=== PATIENT | female | born 1935 | race Two or more races ===

== ENCOUNTER 2018-02-12 05:30 | Day surgery (SDC) | payer OTHER ==
[~2018-02-12 05:30] MED LIST: ANASTROZOLE1 MG PO; BACTROBAN NASAL1 GM NS; FISH OIL 500 M1 EAC1 PO; GLUCOSAMINE-CH1 EAC8 PO; LEVAQUIN500 MG PO; VITAMIN B-121000 MCG PO; VITAMIN C500 M1 PO; ZOCOR40 MG PO; [UNRECOGNIZED DRUG - OTHER]
== END 2018-02-12 12:25 | disposition home or self-care (01) ==
LOC: CIR.AMB 05:30
DX: N81.3 Complete uterovaginal prolapse (principal)

== ENCOUNTER 2018-05-22 13:17 | Outpatient (CLI) | payer OTHER | END 2018-05-22 13:24 | disposition home or self-care (01) | LOC: RAD 13:17 | DX: M25.511 Pain in right shoulder (principal) ==

== ENCOUNTER 2018-05-29 14:52 | Outpatient (CLI) | payer OTHER | END 2018-05-29 15:22 | disposition home or self-care (01) | LOC: RAD 501 14:52 | DX: M17.0 Bilateral primary osteoarthritis of knee (principal); M79.651 Pain in right thigh; M79.604 Pain in right leg; M25.511 Pain in right shoulder ==

== ENCOUNTER → 2018-05-31 | Outpatient (CLI) | payer OTHER | END | disposition home or self-care (01) | LOC: NUCLEAR 13:50 | DX: M81.0 Age-related osteoporosis without current pathological fracture (principal) ==

== ENCOUNTER 2018-10-24 10:44 | Outpatient (CLI) | payer OTHER | END 2018-10-24 10:50 | disposition home or self-care (01) | LOC: RAD 501 10:44 | DX: M25.561 Pain in right knee (principal) ==

== ENCOUNTER 2018-12-10 07:32 | Outpatient (CLI) | payer OTHER ==
[2018-12-10] MEDS ORDERED: TRAZODONE HCL100 MG PO (11:59)
[2018-12-10] MEDS ORDERED: LEXAPRO20 MG PO (11:59)
== END 2018-12-10 14:33 ==
LOC: LAB 07:32
DX: I49.8 Other specified cardiac arrhythmias (principal); Z76.89 Persons encountering health services in other specified circumstances; D64.89 Other specified anemias; E88.89 Other specified metabolic disorders; D68.8 Other specified coagulation defects; N39.0 Urinary tract infection, site not specified; Z22.322 Carrier or suspected carrier of Methicillin resistant Staphylococcus aureus

== ENCOUNTER 2018-12-17 09:05 | Outpatient (CLI) | payer OTHER ==
[~2018-12-17 09:05] MED LIST changes: +LEXAPRO20 MG PO; +TRAZODONE HCL100 MG PO
== END 2018-12-17 09:12 | disposition home or self-care (01) ==
LOC: LAB 09:05
DX: N39.0 Urinary tract infection, site not specified (principal); B96.89 Other specified bacterial agents as the cause of diseases classified elsewhere

== ENCOUNTER 2018-12-30 05:55 | Inpatient (IN) | payer OTHER ==
[~2018-12-30] VITALS: Ht 160 cm; Wt 65.8 kg
[~2018-12-30 05:55] MED LIST changes: +AVILIFY PO; +LEXAPRO5 MG PO
[2018-12-31] MEDS ORDERED: ABILIFY20 MG PO (09:20)
[2019-01-02] MEDS ORDERED: XARELTO10 MG PO (09:05)
== END 2019-01-02 10:03 | disposition home or self-care (01) | DRG 470 ==
LOC: SURH 05:55 → O/R 05:55 → SURH 08:15 → CIR.AMB 11:42 → EDSTATUS 11:43 → SURH 11:43
PROVIDERS: ADMIT Orthopaedic Surgery
PROC: 0MNN0ZZ Release Right Knee Bursa and Ligament, Open Approach (ICD-10-PCS; 2018-12-30)
PROC: 0T9B70Z Drainage of Bladder with Drainage Device, Via Natural or Artificial Opening (ICD-10-PCS; 2018-12-30)
PROC: 0SRC0JZ Replacement of Right Knee Joint with Synthetic Substitute, Open Approach (ICD-10-PCS; principal; 2018-12-30 08:15)
PROC: 4A033R1 Measurement of Arterial Saturation, Peripheral, Percutaneous Approach (ICD-10-PCS; 2018-12-31)
DX: M17.11 Unilateral primary osteoarthritis, right knee (principal); M21.061 Valgus deformity, not elsewhere classified, right knee; G30.0 Alzheimer's disease with early onset; F02.80 Dementia in other diseases classified elsewhere, unspecified severity, without behavioral disturbance, psychotic disturbance, mood disturbance, and anxiety; Z88.2 Allergy status to sulfonamides; Z88.6 Allergy status to analgesic agent; Z88.0 Allergy status to penicillin

== ENCOUNTER 2020-06-10 14:33 | Outpatient (CLI) | payer OTHER ==
[~2020-06-10 14:33] MED LIST changes: +ABILIFY20 MG PO; +XARELTO10 MG PO
== END 2020-06-10 14:34 | disposition home or self-care (01) ==
LOC: NUCLEAR 14:33
PROVIDERS: ATTEND Orthopaedic Surgery
DX: M81.0 Age-related osteoporosis without current pathological fracture (principal)

== ENCOUNTER 2021-07-12 15:34 | Outpatient (CLI) | payer OTHER | END 2021-07-12 15:46 | disposition home or self-care (01) | LOC: RAD 15:34 | PROVIDERS: ATTEND Orthopaedic Surgery | DX: M25.561 Pain in right knee (principal); Z96.651 Presence of right artificial knee joint ==

== ENCOUNTER 2021-07-18 13:37 | Outpatient (CLI) | payer OTHER | END 2021-07-18 13:42 | disposition home or self-care (01) | LOC: NUCLEAR 13:37 | PROVIDERS: ATTEND Orthopaedic Surgery | DX: M81.0 Age-related osteoporosis without current pathological fracture (principal) ==

== ENCOUNTER 2021-09-07 11:46 | Outpatient (CLI) | payer OTHER | END 2021-09-07 11:51 | disposition home or self-care (01) | LOC: LAB 11:46 | PROVIDERS: ATTEND Orthopaedic Surgery | DX: M85.88 Other specified disorders of bone density and structure, other site (principal); E55.9 Vitamin D deficiency, unspecified; E56.1 Deficiency of vitamin K ==

== ENCOUNTER 2022-04-12 09:24 | Outpatient (CLI) | payer OTHER | END 2022-04-12 09:50 | disposition home or self-care (01) | LOC: RAD 09:24 | PROVIDERS: ATTEND Orthopaedic Surgery | DX: M25.562 Pain in left knee (principal) ==

== ENCOUNTER 2022-04-14 08:39 | Outpatient (CLI) | payer OTHER | END 2022-04-14 08:40 | disposition home or self-care (01) | LOC: LAB 08:39 | PROVIDERS: ATTEND Psychiatry & Neurology Neurology | DX: E78.5 Hyperlipidemia, unspecified (principal); E03.9 Hypothyroidism, unspecified; E55.9 Vitamin D deficiency, unspecified; D64.9 Anemia, unspecified; D51.9 Vitamin B12 deficiency anemia, unspecified; E56.9 Vitamin deficiency, unspecified; E53.9 Vitamin B deficiency, unspecified; D52.9 Folate deficiency anemia, unspecified; M79.10 Myalgia, unspecified site ==

== ENCOUNTER 2022-10-23 11:00 | Inpatient (IN) | payer OTHER ==
[~2022-10-23] VITALS: Ht 162.6 cm; Wt 771.1 kg
[2022-10-31] MEDS ORDERED: FOLIC ACID1 MG (08:40)
[2022-10-31] MEDS ORDERED: BUDESONIDE0.5 MG/21 (08:40)
[2022-10-31] MEDS ORDERED: MEMANTINE HCL10 MG (08:40)
[2022-10-31] MEDS ORDERED: MIDODRINE HCL2.5 MG (08:40)
[2022-10-31] MEDS ORDERED: RIVASTIGMINE3 MG (08:40)
[2022-10-31] MEDS ORDERED: POLY119PG PO (10:41)
[2022-10-31] MEDS ORDERED: ELIQUIS5 MG PO (10:41)
[2022-10-31] MEDS ORDERED: FUROSEMIDE20 MG PO (10:41)
[2022-10-31] MEDS ORDERED: LOSARTAN POTASS25 MG PO (10:41)
[2022-10-31] MEDS ORDERED: INTESTINEX680 M1 PO (10:41)
== END 2022-10-31 13:16 | disposition home or self-care (01) | DRG 291 ==
LOC: ER 11:00 → ICU-2 15:05 → ICU 15:05 → SURH 10-26 17:58
PROVIDERS: ADMIT Internal Medicine; ATTEND Internal Medicine
PROC: 02HV33Z Insertion of Infusion Device into Superior Vena Cava, Percutaneous Approach (ICD-10-PCS; 2022-10-23)
PROC: B24BYZZ Ultrasonography of Heart with Aorta using Other Contrast (ICD-10-PCS; 2022-10-23)
PROC: BW24ZZZ Computerized Tomography (CT Scan) of Chest and Abdomen (ICD-10-PCS; 2022-10-23)
PROC: 5A0945A Assistance with Respiratory Ventilation, 24-96 Consecutive Hours, High Flow/Velocity Cannula (ICD-10-PCS; 2022-10-24)
PROC: BW241ZZ Computerized Tomography (CT Scan) of Chest and Abdomen using Low Osmolar Contrast (ICD-10-PCS; 2022-10-24)
PROC: B54DZZZ Ultrasonography of Bilateral Lower Extremity Veins (ICD-10-PCS; 2022-10-25)
PROC: 4A12X4Z Monitoring of Cardiac Electrical Activity, External Approach (ICD-10-PCS; principal; 2022-10-27)
DX: I11.0 Hypertensive heart disease with heart failure (principal); I26.94 Multiple subsegmental thrombotic pulmonary emboli without acute cor pulmonale; J69.0 Pneumonitis due to inhalation of food and vomit; I26.99 Other pulmonary embolism without acute cor pulmonale; I82.532 Chronic embolism and thrombosis of left popliteal vein; N39.0 Urinary tract infection, site not specified; I50.811 Acute right heart failure; G30.9 Alzheimer's disease, unspecified; F02.80 Dementia in other diseases classified elsewhere, unspecified severity, without behavioral disturbance, psychotic disturbance, mood disturbance, and anxiety; B96.20 Unspecified Escherichia coli [E. coli] as the cause of diseases classified elsewhere; Z66 Do not resuscitate
CPT/HCPCS: 71275

== ENCOUNTER 2023-02-05 16:06 | Emergency (ER) | payer OTHER ==
[~2023-02-05] VITALS: Ht 165.1 cm; Wt 70.8 kg
[~2023-02-05 16:06] MED LIST changes: +BUDESONIDE0.5 MG/21; +ELIQUIS5 MG PO; +FOLIC ACID1 MG; +FUROSEMIDE20 MG PO; +INTESTINEX680 M1 PO; +LOSARTAN POTASS25 MG PO; +MEMANTINE HCL10 MG; +MIDODRINE HCL2.5 MG; +POLY119PG PO; +RIVASTIGMINE3 MG
== END 2023-02-06 01:25 | disposition home or self-care (01) ==
LOC: ER 16:06
DX: R06.02 Shortness of breath (principal); I10 Essential (primary) hypertension; Z88.0 Allergy status to penicillin; Z88.2 Allergy status to sulfonamides; Z88.6 Allergy status to analgesic agent; Z85.3 Personal history of malignant neoplasm of breast; G30.9 Alzheimer's disease, unspecified; F02.80 Dementia in other diseases classified elsewhere, unspecified severity, without behavioral disturbance, psychotic disturbance, mood disturbance, and anxiety